=== PATIENT | female | born 1980 | race Caucasian/White ===

== ENCOUNTER 2019-06-11 15:21 | Outpatient (CLI) | payer BC | END 2019-06-11 23:59 | disposition home or self-care (01) | LOC: RAD 15:21 | PROVIDERS: ATTEND Otolaryngology | DX: R13.13 Dysphagia, pharyngeal phase (principal); R49.0 Dysphonia; K21.9 Gastro-esophageal reflux disease without esophagitis; Z79.899 Other long term (current) drug therapy | CPT/HCPCS: 74230 ==

== ENCOUNTER 2021-03-25 09:38 | Day surgery (SDC) | payer BC ==
[2021-03-18 15:38] LABS: BASOPHILS # (AUTO) 0.1 X10'3 (0-0.2); BASOPHILS % (AUTO) 0.7 % (0-1); EOSINOPHILS # (AUTO) 0.1 X10'3 (0-0.9); EOSINOPHILS % (AUTO) 0.9 % (0-6); LYMPHOCYTES % (AUTO) 31.1 % (21-51); MEAN CORPUSCULAR HEMOGLOBIN 29.9 PG (27.0-31.0); MEAN CORPUSCULAR VOLUME 87.8 FL (78-98); MONOCYTES # (AUTO) 0.6 X10'3 (0-0.9); MONOCYTES % (AUTO) 6.5 % (2-12); NEUTROPHILS # (AUTO) 5.9 X10'3 (1.8-7.7); NEUTROPHILS % (AUTO) 60.8 % (42-75); PRE OP HEMATOCRIT 40.5 % (35.0-45.0); PRE OP HEMOGLOBIN 13.8 g/dL (12.0-16.0); PRE OP PLATELET COUNT 209 X10'3 (140-440); RED BLOOD COUNT 4.62 X10'6 (4.20-5.60); RED CELL DISTRIBUTION WIDTH 13.7 % (11.5-14.5)
[2021-03-18 15:49] LABS: ALBUMIN 3.7 G/DL (3.4-5.0); ALBUMIN/GLOBULIN RATIO 0.9 (1.1-1.5); ALKALINE PHOSPHATASE 51 IU/L (46-116); BLOOD UREA NITROGEN 15 MG/DL (7-18); BUN/CREATININE RATIO 17.6 (6.6-38.0); CHLORIDE 102 MMOL/L (99-107); CREATININE 0.85 MG/DL (0.40-0.90); PRE OP ALT 35 U/L (30-65); PRE OP ANION GAP 15 (8-16); PRE OP AST 25 U/L (10-37); PRE OP BILIRUB, TOTAL 0.2 MG/DL (0.0-1.0); PRE OP GLUCOSE 123 MG/DL (70-104); PRE OP POTASSIUM 3.8 MMOL/L (3.4-5.1); PRE OP SODIUM 139 MMOL/L (135-145); TOTAL CARBON DIOXIDE 21.8 MMOL/L (24-32); TOTAL PROTEIN 7.6 G/DL (6.4-8.2); eGFR 73 ML/MIN
[~2021-03-25] VITALS: Ht 167.6 cm; Wt 103.9 kg
[2021-03-25] VITALS (10 sets, daily range): BP systolic 133–147; BP diastolic 84–95
[~2021-03-25 09:38] MED LIST: BUPIVAcaine/PF 2.5mg/ml (0.25%) 10ml vial ONE; DOCUMENT DATE & TIME OF BETA-BLOCKER PO ONE; DULO30CA52 PO; LIDOcaine 0.5% (5mg/ml) 50ml vial ONE; METO-395 PO; clindamycin-Cleocin 900mg/D5W 50 ML IV ONE; famotidine 20mg tablet PO ONE; ringers solution, lacted 1,000 ML IV SCH
[2021-03-25] MEDS ORDERED: meperidine/PF 25mg/ml syringe IV PRN (10:50)
[2021-03-25] MEDS ORDERED: ondansetron/PF 4mg/2ml inj IV PRN (10:50)
[2021-03-25] MEDS ORDERED: ringers solution, lacted 1,000 ML IV SCH (10:50)
[2021-03-25] MEDS ORDERED: HYDROmorphone/PF 0.2 MG/ML SYRINGE IV PRN ×2 (10:50)
[2021-03-25] MEDS ORDERED: fentaNYL/PF 50MCG/1 ML 2ML syringe ONE (12:05)
[2021-03-25] MEDS ORDERED: midazolam 1 mg/ML 2ml injection ONE (12:05)
[2021-03-25] MEDS ORDERED: propofol 10mg/ml 20ml vial IV ONE (12:14)
--- NOTE | 2021-03-25 12:53 | NUR ---
Received from OR via , accompanied by Anesthesiologist DR GARZA and report given by Anesthesiolgist. PT PRESENTS WITH 20G PIV RIGHT HAND, DRESSING ON RIGHT HAND/WRIST DRY AND INTACT. VSS. Addendum: 03/25/21 at 1300 by Maricarmen Amaya RN, RN Amended: Links added.
--- NOTE | 2021-03-25 14:03 | NUR ---
PATIENT A&OX4, DENIES PAIN, V/S STABLE, I HAVE REVIEWED D/C ORDERS WITH PATIENT AND THEY HAVE VERBALIZED UNDERSTANDING. PATIENT D/C HOME WITH ALL BELONGINGS AND GAVE TRANSPORT. Addendum: 03/25/21 at 1422 by Maricarmen Amaya RN, RN Amended: Links added.
== END 2021-03-25 14:03 | disposition home or self-care (01) ==
LOC: PAS 09:38
PROVIDERS: ATTEND Orthopaedic Surgery Hand Surgery
DX: G56.02 Carpal tunnel syndrome, left upper limb (principal); M67.442 Ganglion, left hand; G47.30 Sleep apnea, unspecified; I10 Essential (primary) hypertension; Z88.5 Allergy status to narcotic agent; Z88.0 Allergy status to penicillin; Z79.899 Other long term (current) drug therapy; Z79.82 Long term (current) use of aspirin; Z79.2 Long term (current) use of antibiotics; Z90.710 Acquired absence of both cervix and uterus; Z98.890 Other specified postprocedural states; Z86.718 Personal history of other venous thrombosis and embolism; Z20.822 Contact with and (suspected) exposure to COVID-19
CPT/HCPCS: 26160; 29848; 36415; 80053; 82948; 85025; J2001; J2250; J2704; J3010; J3490; U0003; U0005; Z7506; Z7512; A4215; A4618; A6449; J7120

== ENCOUNTER 2022-11-24 11:30 | Day surgery (SDC) | payer BC ==
[2022-11-22 15:55] LABS: BASOPHILS # (AUTO) 0.1 X10'3 (0-0.2); BASOPHILS % (AUTO) 0.8 % (0-1); EOSINOPHILS # (AUTO) 0.1 X10'3 (0-0.9); EOSINOPHILS % (AUTO) 1.7 % (0-6); LYMPHOCYTES # (AUTO) 2.9 X10'3 (1.1-4.8); LYMPHOCYTES % (AUTO) 37.7 % (21-51); MEAN CORPUSCULAR HEMOGLOBIN 29.7 PG (27.0-31.0); MEAN CORPUSCULAR VOLUME 87.2 FL (78-98); MEAN PLATELET VOLUME 8.8 FL (7.4-10.4); MONOCYTES # (AUTO) 0.5 X10'3 (0-0.9); NEUTROPHILS % (AUTO) 52.8 % (42-75); PRE OP HEMATOCRIT 39.6 % (35.0-45.0); PRE OP HEMOGLOBIN 13.5 g/dL (12.0-16.0); PRE OP PLATELET COUNT 213 X10'3 (140-440); RED BLOOD COUNT 4.54 X10'6 (4.20-5.60); RED CELL DISTRIBUTION WIDTH 13.4 % (11.5-14.5)
[2022-11-22 16:27] LABS: ALBUMIN 3.9 G/DL (3.4-5.0); ALKALINE PHOSPHATASE 64 IU/L (46-116); BLOOD UREA NITROGEN 15 MG/DL (7-18); BUN/CREATININE RATIO 18.3 (10.0-20.0); CALCIUM 9.4 MG/DL (8.5-10.1); CHLORIDE 101 MMOL/L (99-107); CREATININE 0.82 MG/DL (0.40-0.90); PRE OP ALT 58 U/L (30-65); PRE OP ANION GAP 9 (8-16); PRE OP AST 49 U/L (10-37); PRE OP BILIRUB, TOTAL 0.3 MG/DL (0.0-1.0); PRE OP GLUCOSE 117 MG/DL (70-104); PRE OP POTASSIUM 3.6 MMOL/L (3.4-5.1); PRE OP SODIUM 138 MMOL/L (135-145); TOTAL PROTEIN 7.9 G/DL (6.4-8.2); eGFR 76 ML/MIN
[~2022-11-24] VITALS: Ht 167.6 cm; Wt 106.6 kg
[~2022-11-24 11:30] MED LIST changes: +AMLO5TAB16 PO; -BUPIVAcaine/PF 2.5mg/ml (0.25%) 10ml vial ONE; -DOCUMENT DATE & TIME OF BETA-BLOCKER PO ONE; +FAMO20TA8 PO; +LOSA100T57 PO; -METO-395 PO; +OMEP40CA21 PO; +cefazolin 2gm/D5W 100mL 100 ML IV ONE; -clindamycin-Cleocin 900mg/D5W 50 ML IV ONE
[2022-11-24 11:50] VITALS: BP 133/92
[2022-11-24] MEDS ORDERED: BUPIVAcaine/PF 2.5 mg/ml (0.25%) 30ml vial ONE (12:31)
[2022-11-24] MEDS ORDERED: fentaNYL/PF 50MCG/1 ML 2ML syringe ONE (13:09)
[2022-11-24] MEDS ORDERED: midazolam 1 mg/ML 2ml injection ONE (13:09)
[2022-11-24 13:35] VITALS: BP 120/77
--- NOTE | 2022-11-24 13:35 | NUR ---
Received from OR via [facility] , accompanied by Anesthesiologist PURA and report given by Anesthesiolgist. PATIENT WITH 20G PIVIN RIGHTUE RUNNING LR AT 100. DENIES PAIN AT THIS TIME. PATIENT WITH BIAS WRAP TO LEFT WRIST SAREA THAT IS CDI. NO DRAINAGE PRESENT. + CAP REFILL AND STATS NO PAIN AT THIS TIME. Addendum: 11/24/22 at 1348 by Reji Amaya RN, RN Amended: Links added.
[2022-11-24 13:40] VITALS: BP 120/77
[2022-11-24 13:50] VITALS: BP 111/75
--- NOTE | 2022-11-24 14:05 | NUR ---
ABLE TO SAFELY AMBULATE AND TRANSFER SELF. IV TAKEN OUT WITHOUT ANY COMPLICATIONS. ALL DISCHARGE INSTRUCTIONS COVERED WITH PATIENT AND ALL QUESTIONS ANSWERED. PATIENT TAKEN OUT VIA WHEELCHAIR TO PERSONAL VEHICLE WHERE FAMILY/FRIEND DROVE PATIENT HOME. Addendum: 11/24/22 at 1413 by Reji Amaya RN, RN Amended: Links added.
== END 2022-11-24 14:05 | disposition home or self-care (01) ==
LOC: PAS 11:30
PROVIDERS: ATTEND Orthopaedic Surgery Hand Surgery
DX: M67.432 Ganglion, left wrist (principal); F32.A Depression, unspecified; K21.9 Gastro-esophageal reflux disease without esophagitis; Z79.899 Other long term (current) drug therapy; Z98.890 Other specified postprocedural states; Z88.0 Allergy status to penicillin; Z88.6 Allergy status to analgesic agent; Z90.710 Acquired absence of both cervix and uterus; Z86.718 Personal history of other venous thrombosis and embolism
CPT/HCPCS: 25111; 36415; 80053; 82948; 85025; J0690; J2250; J3010; J3490; J7030; J7120; Z7506; Z7512; A4215; A4618; A7000

== ENCOUNTER 2024-06-25 14:53 | Outpatient (CLI) | payer BC ==
[~2024-06-25 14:53] MED LIST changes: -LIDOcaine 0.5% (5mg/ml) 50ml vial ONE; -LOSA100T57 PO; +LOSA100T58 PO; -cefazolin 2gm/D5W 100mL 100 ML IV ONE; -famotidine 20mg tablet PO ONE; -ringers solution, lacted 1,000 ML IV SCH
== END 2024-06-25 23:59 | disposition home or self-care (01) ==
LOC: MRI 14:53
PROVIDERS: ATTEND Podiatrist Foot & Ankle Surgery
DX: R60.0 Localized edema (principal); M25.371 Other instability, right ankle; Z98.890 Other specified postprocedural states
CPT/HCPCS: 73718

== ENCOUNTER 2024-07-14 08:30 | Day surgery (SDC) | payer BC ==
[2024-07-11 14:49] LABS: BASOPHILS # (AUTO) 0.1 X10'3 (0-0.2); BASOPHILS % (AUTO) 0.7 % (0-1); EOSINOPHILS # (AUTO) 0.3 X10'3 (0-0.9); EOSINOPHILS % (AUTO) 2.8 % (0-6); LYMPHOCYTES # (AUTO) 3.3 X10'3 (1.1-4.8); LYMPHOCYTES % (AUTO) 32.5 % (21-51); MEAN CORPUSCULAR HEMOGLOBIN 30.5 PG (27.0-31.0); MEAN CORPUSCULAR HGB CONC 34.8 g/dL (33.0-36.5); MEAN CORPUSCULAR VOLUME 87.7 FL (78-98); MEAN PLATELET VOLUME 8.9 FL (7.4-10.4); MONOCYTES # (AUTO) 0.6 X10'3 (0-0.9); MONOCYTES % (AUTO) 6.1 % (2-12); NEUTROPHILS # (AUTO) 5.9 X10'3 (1.8-7.7); NEUTROPHILS % (AUTO) 57.9 % (42-75); PRE OP HEMATOCRIT 37.4 % (35.0-45.0); PRE OP PLATELET COUNT 261 X10'3 (140-440); PRE OP WHITE BLOOD COUNT 10.2 10'3 (4.8-10.8); RED BLOOD COUNT 4.26 X10'6 (4.20-5.60); RED CELL DISTRIBUTION WIDTH 14.2 % (11.5-14.5)
[2024-07-11 14:52] LABS: ALBUMIN 3.5 G/DL (3.4-5.0); ALBUMIN/GLOBULIN RATIO 0.8 (1.1-1.5); ALKALINE PHOSPHATASE 64 IU/L (46-116); BLOOD UREA NITROGEN 12 MG/DL (7-18); BUN/CREATININE RATIO 13.2 (10.0-20.0); CALCIUM 8.8 MG/DL (8.5-10.1); CHLORIDE 100 MMOL/L (99-107); CREATININE 0.91 MG/DL (0.40-0.90); PRE OP ALT 26 U/L (30-65); PRE OP ANION GAP 8 (8-16); PRE OP AST 18 U/L (10-37); PRE OP BILIRUB, TOTAL 0.3 MG/DL (0.0-1.0); PRE OP GLUCOSE 128 MG/DL (70-104); PRE OP POTASSIUM 3.5 MMOL/L (3.4-5.1); PRE OP SODIUM 136 MMOL/L (135-145); TOTAL CARBON DIOXIDE 28.5 MMOL/L (24-32); TOTAL PROTEIN 7.7 G/DL (6.4-8.2); eGFR 67 ML/MIN
[2024-07-14] VITALS (10 sets, daily range): BP systolic 98–129; BP diastolic 64–79; PULSE 66–84; RESP 13–19; TEMP 98.7; O2SAT 92–99
[~2024-07-14] VITALS: Ht 167.6 cm; Wt 103.1 kg
[2024-07-14] MEDS: clindamycin-Cleocin 900mg/D5W 50 ML IV ONE (05:30)
[~2024-07-14 08:30] MED LIST changes: -AMLO5TAB16 PO
[2024-07-14] MEDS: famotidine 20mg tablet PO ONE (09:11)
[2024-07-14] MEDS: ringers solution, lacted 1,000 ML IV SCH (09:13)
[2024-07-14] MEDS ORDERED: LIDOcaine 2% (20mg/ml) 5ml vial ONE (10:30)
[2024-07-14] MEDS ORDERED: BUPIVAcaine/PF 2.5mg/ml (0.25%) 10ml vial ONE (10:30)
[2024-07-14] MEDS ORDERED: fentaNYL/PF 50MCG/1 ML 2ML syringe ONE (10:32)
[2024-07-14] MEDS ORDERED: MIDAZolam 1 MG/ML 5ML VIAL ONE (10:33)
[2024-07-14] MEDS ORDERED: meperidine/PF 25mg/ml syringe ONE (11:02)
== END 2024-07-14 12:16 | disposition home or self-care (01) ==
LOC: PAS 08:30
PROVIDERS: ATTEND Orthopaedic Surgery Hand Surgery
DX: M67.431 Ganglion, right wrist (principal); I10 Essential (primary) hypertension; K21.9 Gastro-esophageal reflux disease without esophagitis; G47.33 Obstructive sleep apnea (adult) (pediatric); E66.9 Obesity, unspecified; I25.2 Old myocardial infarction; Z79.2 Long term (current) use of antibiotics; Z79.82 Long term (current) use of aspirin; Z79.891 Long term (current) use of opiate analgesic; Z79.899 Other long term (current) drug therapy; Z90.49 Acquired absence of other specified parts of digestive tract; Z90.710 Acquired absence of both cervix and uterus; Z98.891 History of uterine scar from previous surgery; Z98.890 Other specified postprocedural states; Z68.36 Body mass index [BMI] 36.0-36.9, adult; Z88.0 Allergy status to penicillin; Z88.5 Allergy status to narcotic agent
CPT/HCPCS: 25111; 36415; 80053; 82948; 85025; 93005; J2003; J2175; J2250; J3010; J3490; J7030; J7120; Z7506; Z7512; A4215; A4618; A6449; A7000